=== PATIENT | female | born 1945 | race Caucasian/White ===

== ENCOUNTER 2024-09-24 08:22 | Inpatient (IN) | payer OTHER, SELFPAY ==
[2024-09-24] VITALS (9 sets, daily range): BP systolic 126–164; BP diastolic 74–91; PULSE 79–98; RESP 16–20; TEMP 36.3–36.8; O2SAT 95–99; BMI 27.4
--- NOTE | 2024-09-24 08:58 | EKG_ITS ---
[facility] Test Date: 2024-09-24 Pat Name: JAIRON POWELL Department: Room: - Gender: Female Fisher Scallop: : 1945 Requested By: Emilie Alcala Order Number: [id number] Reading MD: Emilie Alcala Measurements Intervals [place] Rate: 89 P: ME: QRS: 34 QRSD: 86 T: 42 QT: 364 QTc: 445 Interpretive Statements ATRIAL FIBRILLATION NONSPECIFIC T-WAVE ABNORMALITY ABNORMAL RHYTHM ECG No previous ECG available for comparison /store/S0/[id number]
--- NOTE | 2024-09-24 08:59 | XR_ITS ---
Examination: PA lateral chest 2 views Technique: Upright PA lateral chest 2 views Exam date and time: September 24, 2024, 0922 hrs. Indications: Dizziness beginning 2 days ago. Findings: Mild prominence cardiac contour. Ectatic thoracic aorta. CABG. No pneumonia or pulmonary edema. Impression: No pneumonia or pulmonary edema.
--- NOTE | 2024-09-24 09:15 | PD.EDRME ---
Rapid Medical Screening Exam RME Arrival date/time: 09/24/24 08:22 This is a 78-year-old female that comes in with complaints of dizziness. Patient states that the dizziness started when she woke up this morning. Patient reports that the dizziness is random it is not so much when she moves her head [id number] it just comes and goes. Patient has a history of open heart surgery. Patient also reports history of high blood pressure. Patient denies any chest pain shortness of breath. I have greeted and performed a focused initial assessment of this patient. Initial appropriate labs ordered at this time. A comprehensive ED assessment and evaluation of the patient and analysis of all test and completion of medical decision making process will be conducted by additional ED provider. Chief Complaint: Dizziness Time Seen by Provider: 09/24/24 08:28 Vital signs: Vital Signs Temperature 98.2 F 09/24/24 08:29 Pulse Rate 87 09/24/24 08:29 Respiratory Rate 18 09/24/24 08:29 Blood Pressure 164/91 H 09/24/24 08:29 Pulse Oximetry (%) 97 09/24/24 08:29 Oxygen Delivery Method Room Air 09/24/24 08:29
[2024-09-24 10:05] LABS: Collection Type, Urine Voided; Squamous Epithelial Cell,Urine 0 /hpf (0-5)
[2024-09-24 10:14] LABS: Basophils % (Auto) 1 % (0-2.5); Eosinophils # (Auto) 0.1 Thou/mm3 (0.0-0.5); Eosinophils % (Auto) 2 % (0-10); Hematocrit 31.2 % (36.0-46.0); Hemoglobin 9.5 g/dL (12.0-16.0); Immature Granulocytes % (Auto) 0 % (0-0); Immature Granulocytes Auto 0.01 Thou/mm3 (0.00-0.00); Lymphocytes # (Auto) 1.2 Thou/mm3 (1.0-4.8); Lymphocytes % (Auto) 27 % (10-50); Mean Corpuscular HGB Conc 30.4 g/dl (31.0-37.0); Mean Corpuscular Hemoglobin 25.3 pg (25.0-35.0); Mean Corpuscular Volume 83 fL (80-100); Monocytes # (Auto) 0.4 Thou/mm3 (0.0-0.8); Monocytes % (Auto) 9 % (0-12); Neutrophils # (Auto) 2.7 Thou/mm3 (1.8-7.7); Neutrophils % (Auto) 61 % (37-80); Nucleated Red Blood Cell % 0 /100 WBC (0); Platelet Count 256 Thou/mm3 (140-440); RDW Standard Deviation 44.4 fL (36.4-46.3); Red Blood Count 3.76 Miln/mm3 (4.00-5.20); White Blood Count 4.4 Thou/mm3 (3.6-11.0)
[2024-09-24 10:42] LABS: B-Type Natriuretic Peptide 238 pg/mL (0-100)
[2024-09-24 10:45] LABS: Alanine Aminotransferase 31 U/L (10-49); Albumin, Serum 4.5 gm/dL (3.4-4.8); Alkaline Phosphatase 67 U/L (46-116); Anion Gap 8 (7-16); Aspartate Amino Transferase 25 U/L (0-34); BUN/Creatinine Ratio 13 Ratio (12-20); Bilirubin,Total 0.5 mg/dL (0.3-1.2); Blood Urea Nitrogen 17 mg/dL (9-23); Calcium 9.2 mg/dL (8.3-10.6); Calcium (Corrected) 9.2 mg/dL (8.5-10.1); Carbon Dioxide 24.9 mMol/L (20.0-31.0); Chloride 111 mMol/L (98-107); Creatinine (Component) 1.3 mg/dL (0.6-1.3); Globulin 2.2 gm/dL (2.3-3.5); Glucose 131 mg/dL (74-106); Osmolality,Calculated 290 (275-295); Potassium 4.4 mMol/L (3.4-5.1); Sodium 144 mMol/L (136-145); Total Protein 6.7 gm/dL (5.7-8.2); Troponin I < 0.020 ng/mL (0.0-0.045); eGFR 42 See Note
[2024-09-24 10:45] LABS: Bilirubin,Urine Negative (Negative); Blood,Urine Negative (Negative); Clarity,Urine Clear (Clear/Hazy); Color,Urine Colorless (Lt Yel-Yel); Culture Indicated,Urine Not Indicated; Glucose, Urine Negative (Negative); Ketones,Urine Negative (Negative); Leukocyte Esterase,Urine Negative (Negative); Nitrite,Urine Negative (Negative); PH,Urine 6.5 (5.0-7.0); Protein,Urine Negative (Neg - Trace); RBC,Urine 1 /hpf (0-3); Specific Gravity,Urine 1.013 (1.001-1.035); Urobilinogen,Urine Negative mg/dL (0.0-1.0); WBC,Urine < 1 /hpf (0-5)
--- NOTE | 2024-09-24 13:03 | PC.NURSE ---
Patient from [facility] and taken to er room 4 with c/o dizziness early this am upon getting up. Unknown exact time. Got patient up to walk around nurses station, patient states she feels off balance, however, denies feeling dizzy right now, Jugen [employer] at bedside and is aware. Patient denies pain, skin is warm dry and pink, new orders received from [employer]. Daughter at bedside, call light within reach.
--- NOTE | 2024-09-24 13:05 | XR_ITS ---
Examination: CT brain head without contrast. 2-D sagittal coronal reconstructions Date and time of exam:September 24, 2024 1325 hrs. Indications: Dizziness difficulty with balance today CTDI: vol (mGy):46.3 DLP: (mGycm):944 Technique: Multiple CT axial sections of the brain have been obtained, 5 mm slice thickness. Contrast has not been administered. 2-D sagittal, coronal reconstructions have been obtained Low dose protocols were performed. One or more of the following dose reduction techniques were used; automated exposure control, adjustment of the mA and/or KV according to patient size, use of iterative reconstruction technique. Findings: No significant ventricular enlargement. Intra-axial or extra-axial hemorrhage density is not seen. No mass effect or midline shift Basal cisterns are not remarkable. Fourth ventricle is midline. Cranial vault intact. Impression: Negative for acute hemorrhage, mass effect or midline shift Advise clinical correlation and follow-up accordingly
--- NOTE | 2024-09-24 13:08 | EDNOTE_ITS ---
ED General RME/HPI General Chief complaint: Dizziness Stated complaint: DIZZINESS Time Seen by Provider: 09/24/24 08:28 Arrival date/time: 09/24/24 08:22 CC: Dizziness HPI abrupt onset of dizziness with waking up this morning at approximately 6:15 AM. The patient states she almost fell over while trying to go to the bathroom. Patient states she woke up while lying in bed and immediately got up to get her dog off the bed. Patient does not think that she was dizzy at the time she was laying in bed but the dizziness has waxed and waned. Currently the patient states she is not dizzy but is unsteady on her feet . Patient denies the room spinning but states that she is spinning . Patient denies a prior history of similar events. Patient has a history of hypertension taking lisinopril and amlodipine. Patient denies chest pain shortness of breath difficulty breathing headache nausea vomiting diarrhea. Patient is very active, living in [place], manages multiple horses and dogs. No prior history of this symptoms before. During the initial assessment patient was ambulated. Patient noted to have a mildly unsteady gait secondary to balance quickly correcting her balance with a sidestep without a fall. RME / HPI RME / HPI narrative: 09/24/24 08:22 This is a 78-year-old female that comes in with complaints of dizziness. Patient states that the dizziness started when she woke up this morning. Patient reports that the dizziness is random it is not so much when she moves her head [id number] it just comes and goes. Patient has a history of open heart surgery. Patient also reports history of high blood pressure. Patient denies any chest pain shortness of breath. I have greeted and performed a focused initial assessment of this patient. Initial appropriate labs ordered at this time. A comprehensive ED assessment and evaluation of the patient and analysis of all test and completion of medical decision making process will be conducted by additional ED provider. Related Data Allergies Allergy/AdvReac Type Severity Reaction Status Date / Time codeine Allergy Mild Dizziness Verified 09/24/24 08:26 Review of Systems Review of Systems Narrative Review of Systems: GEN: No fever, no chills, no weight loss EYES: No discharge, no visual changes, no pain HEENT: No ear pain, no congestion, no sore throat PULM: No shortness of breath, no cough, no congestion CV: No chest pain, no dyspnea on exertion, no palpitations GI: No nausea, no vomiting, no diarrhea, no pain, no constipation : No frequency, no urgency, no dysuria MUSC/SKEL: No joint pain, no back pain SKIN: No rash PSYCH: No hallucinations, no depression HEME/LYMPH: No easy bleeding or bruising tendencies NEURO: No weakness, no headache, + dizziness Past Medical History Past Medical History CARDIAC: Positive Hypertension; Negative Congestive Heart Failure RESPIRATORY: Negative Chronic Obstructive Pulmonary Disease (COPD) GENITOURINARY: Negative Renal Disease ENDOCRINE: Negative Diabetes Mellitus Type 1 or Diabetes Mellitus Type 2 Surgical History SURGICAL: Positive Coronary Artery Bypass Graft (triple bypass) and Tonsillectomy Social History SMOKING STATUS: Never smoker ED Exam Narrative Physical exam: [General: Appears not in any acute distress Head normocephalic HEENT: Eyes pupils are PERRLA EOMs intact no vertical horizontal nystagmus. Mouth: Sarita moist membranes uvula is midline swallow symmetrical. All the subsystems of HEENT are within acceptable limits Neck is supple nontender no JVD no edema Chest equal chest rise nontender to palpation Respiratory: Clear to auscultation no wheezes crackles or rubs CV: Rate rhythm is regular no murmurs rubs or clicks Abdomen is soft nontender no masses positive bowel sounds all 4 quadrants Back: No CVA tenderness no spinous process tenderness from cervical spine thoracic and lumbar spine Skin: Intact no petechiae rash induration ulceration or crepitus Extremities: Moving all extremity against resistance cap refill less than 2 seconds neurosensory intact Neuro: Awake alert oriented x3 Glascow coma 15 no focal deficits] cranial nerves II through XII are grossly intact. Course Course Course Narrative: At 1330 contacted telemetry neurology as we do not have local neurology coverage. At 1400 discussed the patient's condition with , teleneurologist, who agrees patient needs a stroke workup especially finding that the patient is A- fib new onset. Patient is in agreement with this plan. Patient's case discussed with resident for Dr. Horowitz who agrees to accept the patient for admission Quality Measures none Orders Category Date Time Status CT Screening NOW Care 09/24/24 13:10 Active EKG (ED ONLY) *Do not use* NOW Care 09/24/24 08:58 Completed EKG (ED ONLY) *Do not use* NOW Care 09/24/24 13:[address] angio carotid w head w Stat Exams 09/24/24 13:[address] head/brain wo con Stat Exams 09/24/24 13:05 Completed EKG (ED Only) Stat Exams 09/24/24 08:58 Draft EKG (ED Only) Stat Exams 09/24/24 13:22 Ordered XR chest 2V Stat Exams 09/24/24 08:59 Completed BNP [B-Type Natriuretic Peptide] Stat Lab 09/24/24 09:44 Completed CBC Stat Lab 09/24/24 09:44 Completed Comprehensive Metabolic Panel Stat Lab 09/24/24 09:44 Completed Troponin I Stat Lab 09/24/24 09:44 Completed Urinalysis, C/S if Indicated Stat Lab 09/24/24 09:00 Completed Aspirin [Ecotrin] Med 09/24/24 14:15 Discontinued 81 mg PO X1 ONE Clopidogrel [Plavix] Med 09/24/24 14:15 Discontinued 75 mg PO X1 ONE Vital Signs Vital signs: Vital Signs Temperature 98.2 F 09/24/24 08:29 Pulse Rate 87 09/24/24 08:29 Respiratory Rate 18 09/24/24 08:29 Blood Pressure 164/91 H 09/24/24 08:29 Pulse Oximetry (%) 97 09/24/24 08:29 Oxygen Delivery Method Room Air 09/24/24 08:29 Discharge Plan Plan Patient Disposition: Other Care w/in Hosp ([facility]) Patient condition on transfer: Stable Prescriptions/Referrals Referrals: No Primary/Family,Physician [Primary Care Provider] - In 1 week Problem List Clinical Impression: CVA (cerebral vascular accident), Vertigo, New onset a-fib Patient/Caregiver Discharge Instructions Print Language: Malian Stand Alone Forms: Brianne Award Info., Patient Portal Info Letter PA/DRIVE IN THEATER ATTENDANT Supervising Physician PA/DRIVE IN THEATER ATTENDANT Supervising Physician: Parag Ahumada ENP [facility] Clinical Information Provided by: patient Medical Records reviewed [facility] Chronic Illness/Social Conditions Explain: Hypertension EKG Interpretation EKG #1: EKG Interpretation: EKG performed at 0859 shows ventricular rate of 89 QRS of 86 QTc of 411. Upon close inspection of this EKG I suspect this is A-fib. No old EKG for comparison. Repeat EKG done at 1347 shows a ventricular rate of 76 QRS of 8 9 QTc of 408 this is A-fib. Labs Lab(s) Interpretation(s): CBC shows no leukocytosis and H&H of 9.5 and 31.2 respectively with platelets of 256 CMP shows a chloride of 111 glucose of 131 no other electrolyte imbalances no renal impairment no transaminitis or T. bili elevation Troponin is negative BNP is 238 Urine is unremarkable for urinary tract infection. Imaging Imaging Interpretation(s): CT head, CTA head and neck are negative as interpreted by me and read by radiology. Medication Administration(s) Medication Administration History Discontinued Medications Aspirin (Aspirin Ec 81 Mg Tabec) 81 mg PO X1 ONE Stop: 09/24/24 14:16 Clopidogrel Bisulfate (Clopidogrel Bisulfate 75 Mg Tablet) 75 mg PO X1 ONE Stop: 09/24/24 14:16 None Diagnosis Differential Diagnosis ED Complaint MDM: CVA TIA A-fib new onset ACS [place]
--- NOTE | 2024-09-24 13:10 | XR_ITS ---
Examination: CTA carotids with intravenous contrast CTA brain, head with intravenous contrast. 2-D sagittal, coronal reconstructions. 3-D reconstructions. Exam date and time: September 24, 2024 1327 hrs. Indications: Dizziness episodes with loss of balance today CTDI: vol (mGy) 24.6 DLP: (mGycm) 429 Technique: Multiple CTA axial brain, head carotid images post intravenous contrast injection 100 cc, [id number]. 2-D sagittal, coronal reconstructions. 3-D reconstructions, 3-D post processing including vascular maximum intensity projection images. Low dose protocols were performed. One or more of the following dose reduction techniques were used; automated exposure control, adjustment of the mA and/or KV according to patient size, use of iterative reconstruction technique. Findings: No significant common carotid carotid bifurcation or internal carotid artery stenoses Mildly dominant right vertebral artery with no critical stenoses No cerebral large vessel arterial occlusions, thrombus or dissection Impression: No significant neck arterial stenoses No cerebral large vessel arterial occlusions Consider elective brain MRI MRA without contrast follow-up
--- NOTE | 2024-09-24 13:13 | PC.NURSE ---
Patient gone to ct via [facility]
--- NOTE | 2024-09-24 13:55 | PC.NURSE ---
Dr. Santos, teleneurologist assessing patient at this time.
[2024-09-24] MEDS: ASPIRIN EC 81 MG TABEC PO (14:27)
[2024-09-24] MEDS: CLOPIDOGREL BISULFATE 75 MG TABLET PO (14:28)
--- NOTE | 2024-09-24 15:08 | XR_ITS ---
Examination: Carotid arterial duplex scan, ultrasound. Date and time of exam: September 24, 2024 1708 hours INDICATIONS: Difficulty with balance today Technique: Multiple sonographic images have been obtained of the carotid arteries and vertebral arteries, B-mode/grayscale imaging and Doppler spectral analysis and color flow Peak systolic and diastolic velocities have been recorded. Systolic diastolic ratios have been calculated. Findings: Right peak systolic velocities: Distal internal carotid artery peak systolic velocity is 0.9 M/sec Proximal internal carotid artery peak systolic velocity is 0.6 M/sec Carotid bifurcation peak systolic velocity is 0.7 M/sec External carotid artery peak systolic velocity is 0.7 M/sec Vertebral artery flow is antegrade. Left peak systolic velocities: Distal internal carotid artery peak systolic velocity is 0.7 M/sec Proximal internal carotid artery peak systolic velocity is 1.1 M/sec Carotid bifurcation peak systolic velocity is 0.8 M/sec External carotid artery peak systolic velocity is 0.8 M/sec Vertebral artery flow is antegrade Doppler waveform analysis demonstrates no spectral broadening Impression: Right internal carotid artery demonstrates 0-10% stenosis. Left internal carotid artery demonstrates 10-30% stenosis.
--- NOTE | 2024-09-24 15:19 | ESHP_ITS ---
Documentation for date of: 09/24/24 HPI History of Present Illness Chief complaint: Dizziness, unsteady gait History of present illness: 78-year-old female with past medical history of hypertension, hyperlipidemia, and CAD status post CABG was admitted to the hospital on 09/24/2024 after coming to the ED where she complains of dizziness with unsteady gait since this morning when she woke up. On assessment patient stated that when she woke up this morning to go to the bathroom she was feeling dizzy and she felt like she was not in control of her body and also that she was having unsteady gait when which she has to take white steps in order to be able to walk and cannot walk on a straight line. She mentioned that this started this morning around 6:15 AM when she went to the bathroom and then went back to bed. She did mention that she felt her face to see if she had any numbness, but she did not appreciate any numbness or facial asymmetry. Patient also stated that she did not have any dysarthria or any weakness. She lives in the [place] where she lives alone and is very active. She mentioned that that this time she did not have any chest pain or felt her heart missing a beat. She did mention that she was a little bit nauseated in the morning, but after she ate it went away. She denied any shortness of breath, abdominal pain, dysuria, bloody stools, or syncopal episode. ED course: Initially came in hypertensive and afebrile. Initial labs were relevant for low hemoglobin (9.5) and mildly elevated BNP at 238, otherwise unremarkable. Initial imaging included EKG which did show a new onset A-fib rate controlled, chest x-ray was showed no pneumonia or pulmonary edema, head CT and head CTA which did not have any significant findings. ED physician spoke with teleneurology who stated to admit the patient for stroke rule out. PMH: Hypertension, hyperlipidemia, and CAD status post CABG Surgical Hx: CABG Social Hx: Past smoker (quit more than 20 years ago), social drinker, and denies any drugs FMH: Mother and sister had strokes and father had an AR Allergies: Codeine Medications: Lisinopril 10 mg, amlodipine 5 mg, ezetimibe Review of Systems Review of Systems Narrative Review of Systems: Constitutional: Denies sweats, Denies weight loss/gain, Denies fever, Denies chills. HEENT: Denies hearing loss, Denies ear pain, Denies postnasal drip, Denies double vision, Denies blurry vision. Respiratory: Denies shortness of breath, Denies cough, Denies wheezing. Cardiovascular: Denies chest pain, Denies palpitations, Denies sudden loss of consciousness. GI: Denies blood in stool, Denies constipation, Denies abdominal pain, Denies difficulty swallowing, Denies nausea or vomit. : Denies urinary incontinence, Denies pain while urinating, Denies increased urinary frequency. MSK: Denies joint pain, Denies joint swelling, Denies numbness. Skin: Denies rash, Denies itching, Denies easy bruising. Neuro: Denies headaches, Admits dizziness, Denies seizures, admits unsteady gait. Past Medical History Past Medical History CARDIAC: Positive Hypertension; Negative Congestive Heart Failure RESPIRATORY: Negative Chronic Obstructive Pulmonary Disease (COPD) GENITOURINARY: Negative Renal Disease ENDOCRINE: Negative Diabetes Mellitus Type 1 or Diabetes Mellitus Type 2 Surgical History SURGICAL: Positive Coronary Artery Bypass Graft (triple bypass) and Tonsillectomy Social History SMOKING STATUS: Never smoker Exam Vital Signs Temp Pulse Resp BP Pulse Ox O2 Del Method 97.8 F 79 19 135/77 H 98 Room Air 09/24/24 15:11 09/24/24 15:11 09/24/24 15:11 09/24/24 15:11 09/24/24 15:11 09/24/24 15:11 Narrative Exam General: A/O x3, no acute distress, well-nourished, well-developed Eyes: PERRL, EOMI. Anicteric, vision grossly intact. Ears: No ear pain, no ear discharge, Hearing grossly intact. Nose: No nasal discharge. Mouth/Throat: Moist mucous membranes, no redness, no lesions. Neck: Neck supple, non-tender, no cervical lymphadenopathy. Lungs: Clear LALO to auscultation and percussion, No accessory muscle use. Cardio: Normal S1/S2, irregular rhythm, no murmurs, no JVD Abdomen: Soft, non-tender, no palpable masses, peristalsis present, no guarding or rebound. Extremities: Symmetrical, no significant deformities, no peripheral edema , non-tender, peripheral pulses presents. Skin: No rashes, no lesions, warm to touch. Neuro: No focal neurological deficits. Motor strength 5/5 LALO UE and LE. Sensory intact. No facial asymmetry. No dysmetria. Psych: Cooperative, appropriate mood and effect. Results: Labs 09/25/24 05:53 09/25/24 05:53 Labs: Short CBC 09/24/24 Range/Units 09:44 WBC 4.4 (3.6-11.0) Thou/mm3 Hgb 9.5 L (12.0-16.0) g/dL Hct 31.2 L (36.0-46.0) % Plt Count 256 (140-440) Thou/mm3 BMP 09/24/24 09:44 Sodium 144 Potassium 4.4 Chloride 111 H Carbon Dioxide 24.9 BUN 17 Creatinine 1.3 Glucose 131 H Calcium 9.2 Cardiac Enzymes 09/24/24 Range/Units 09:44 Troponin I < 0.020 (0.0-0.045) ng/mL Liver Function 09/24/24 Range/Units 09:44 Total Bilirubin 0.5 (0.3-1.2) mg/dL AST 25 (0-34) U/L ALT 31 (10-49) U/L Alkaline Phosphatase 67 (46-116) U/L Albumin 4.5 (3.4-4.8) gm/dL Urine 09/24/24 Range/Units 09:00 Urine Color Colorless A (Lt Yel-Yel) Urine Clarity Clear (Clear/Hazy) Urine pH 6.5 (5.0-7.0) Ur Specific [place] 1.013 (1.001-1.035) Urine Protein Negative (Neg - Trace) Urine Glucose (UA) Negative (Negative) Quality Measures Quality Measures none Advance care planning discussed with:: patient and child Medications Home Medications and Allergies Allergies Allergy/AdvReac Type Severity Reaction Status Date / Time codeine Allergy Mild Dizziness Verified 09/24/24 08:26 Visit Medications Acetaminophen (Acetaminophen 325 Mg Tablet) 650 mg PO Q6H PRN PRN Reason: pain and Fever >100.4 Stop: 10/24/24 15:04 Aspirin (Aspirin Ec 81 Mg Tabec) 81 mg PO QDAY SERAFIN Stop: 10/25/24 08:59 Atorvastatin Calcium (Atorvastatin Calcium 20 Mg Tablet) 40 mg PO HS SERAFIN Stop: 10/24/24 20:59 Heparin Sodium (Porcine) (Heparin Sod Inj 5000 Unit/Ml Vial) 5,000 unit SC Q8HR [facility] Stop: 10/08/24 21:59 Ondansetron HCl (Ondansetron Inj 2 Mg/Ml Inj 2 Ml) 4 mg IV Q6H PRN; Protocol PRN Reason: NAUSEA OR VOMITING Stop: 10/24/24 15:04 Pantoprazole Sodium (Pantoprazole 40 Mg Tablet) 40 mg PO QDAY [facility] Stop: 10/25/24 08:59 Discontinued Medications Aspirin (Aspirin Ec 81 Mg Tabec) 81 mg PO X1 ONE Stop: 09/24/24 14:16 Last Admin: 09/24/24 14:27 Dose: 81 mg Clopidogrel Bisulfate (Clopidogrel Bisulfate 75 Mg Tablet) 75 mg PO X1 ONE Stop: 09/24/24 14:16 Last Admin: 09/24/24 14:28 Dose: 75 mg Assessment & Plan Plan 78-year-old female with past medical history of hypertension, hyperlipidemia, and CAD status post CABG was admitted to hospital 09/24/2024 for stroke rule out in the setting of dizziness and unsteady gait. #Stroke R/O #Dizziness #Unsteady gait ?DDx TIA versus stroke ?Patient had new onset A-fib which could have contributed for possible stroke ?NIHSS score 0 ?CTA head and neck negative ?CT head negative Plan: ?Patient was out of window for IV thrombolytics. ?Aspirin and statin ordered ? MRI ordered ?Echo with bubble studies ordered ?Carotid ultrasound ordered ?Neurochecks every 4 hours ?Allow permissive hypertension ?Aspiration precautions -Consult in-hospital neurology, appreciate recommendations -Referred to speech and physical therapy #Atrial fibrillation, new onset Patient denies having any feelings of skipped heartbeat or tachycardia. EKG showed new onset A-fib with rate in the 70s. [id number] 5 points indicating 7.2% stroke risk per year HAS-BLED score of 1 point indicating low risk of major bleeding Plan: Patient appears to be rate controlled at this time therefore no rate or rhythm control medication Will start patient on Eliquis 5mg twice daily once cardiology approves Cardiology consulted, appreciate recommendations #Hx of hypertension Patient's blood pressure was mildly elevated during admission and 164/91, but then was in the 130s over 70s. Will allow for permissive hypertension for now #Hx of hyperlipidemia Patient takes ezetimibe Will start patient on atorvastatin 40 mg at bedtime Disposition: Patient admitted to telemetry for stroke r/o, pending MRI, US carotid, and Neuro and cardio recs. Diet: Cardiac GI prophylaxis: protonix DVT prophylaxis: heparin subcu Code:DNR Case disclosed with Attending Dr. Lor Dukes PGY1 Attending Provider Attestation/Addendum I reviewed labs, imaging, EKG, home medications and prior available records. Face to face evaluation was performed by me. I have personally examined the patient and discussed assessment and plan with the IM team. I reviewed the resident note and agree with the plan with exceptions as below. Vertigo Ataxia CVA symptoms New onset atrial fibrillation Essential hypertension Hyperlipidemia CT scan of the head is negative for acute changes Started aspirin and atorvastatin Follow-up brain MRI Follow-up echocardiogram with bubble study Follow-up carotid ultrasound Consulted cardiology Consulted neurology PT/OT evaluation
--- NOTE | 2024-09-24 15:39 | ESCONSULT_ITS ---
Tele Neuro Consultation Consultation Date 09/24/24 Most Recent Vital Signs Last Vital Signs Temp 97.8 F 09/24/24 15:11 Pulse 79 09/24/24 15:11 Resp 19 09/24/24 15:11 BP 135/77 H 09/24/24 15:11 Pulse Ox 98 09/24/24 15:11 O2 Del Method Room Air 09/24/24 15:11 Consultation Narrative [facility] TeleNeurology Consult Services Stat Consult Patient Name:???JAIRON POWELL Date of :???1945 Identification Number:??? Date of Service:???09/24/2024 13:18:24 Diagnosis:?R42 - Dizziness/ Vertigo/ Giddiness Impression 78 year old female who presents to the hospital because of unsteady gait. Presentation concerning for possible posterior circulation stroke. Recommendations: Our recommendations are outlined below. Diagnostic Studies :MRI head without contrast TTE w/ shunt study Laboratory Studies :Lipid panel * I orderedHemoglobin A1c Antithrombotic Medication :Aspirin 81 mg PO daily Clopidogrel 75 mg daily Nursing Recommendations :IV Fluids, avoid dextrose containing fluids, Maintain euglycemia Neuro checks q4 hrs x 24 hrs and then per shift Head of bed 30 degrees Continue with Telemetry Consultations :Recommend Speech therapy if failed dysphagia screen Physical therapy/Occupational therapy DVT Prophylaxis :Choice of Primary Team Disposition :Neurology will follow Advanced Imaging: CTA Head and Neck Completed. LVO:No Patient in not a candidate for GIORGIO Metrics: Dispatch Time: 09/24/2024 13:18:24 Callback Response Time: 09/24/2024 13:20:59 Primary Provider Notified of Diagnostic Impression and Management Plan on: 09/24/2024 14:13:53 CT HEAD: As Per Radiologist CT Head Showed No Acute Hemorrhage or Acute Core Infarct Chief Complaint: Vertigo History of Present Illness:Patient is a 78 year old Female. 78 year old female who presents to the hospital because of dizziness and feeling off balance. She was normal when she went to bed and throughout the night she woke up to use the bathroom and felt normal. At 6am she woke up and tried to get up from bed and felt the room spinning and was unsteady on her feet. Past Medical History: ?Hypertension ?Hyperlipidemia Medications: No Anticoagulant use? No Antiplatelet use Reviewed EMR for current medications Allergies:? Reviewed Social History: Drug Use: No Family History: There is no family history of premature cerebrovascular disease pertinent to this consultation ROS : 14 Points Review of Systems was performed and was negative except mentioned in HPI. Past Surgical History: There Is No Surgical History Contributory To Today?s Visit Examination: BP(135/77),?Pulse(79), 1A: Level of Consciousness - Alert; keenly responsive?+ 0 1B: Ask Month and Age - Both Questions Right?+ 0 1C: Blink Eyes & Squeeze Hands - Performs Both Tasks?+ 0 2: Test Horizontal Extraocular Movements - Normal?+ 0 3: Test Visual Rincon - No Visual Loss?+ 0 4: Test Facial Palsy (Use Grimace if Obtunded) - Normal symmetry?+ 0 5A: Test Left Arm Motor Drift - No Drift for 10 Seconds?+ 0 5B: Test Right Arm Motor Drift - No Drift for 10 Seconds?+ 0 6A: Test Left Leg Motor Drift - No Drift for 5 Seconds?+ 0 6B: Test Right Leg Motor Drift - No Drift for 5 Seconds?+ 0 7: Test Limb Ataxia (FNF/Heel-Palacios) - No Ataxia?+ 0 8: Test Sensation - Normal; No sensory loss?+ 0 9: Test Language/Aphasia - Normal; No aphasia?+ 0 10: Test Dysarthria - Normal?+ 0 11: Test Extinction/Inattention - No abnormality?+ 0 NIHSS Score:?0 Spoke with :?Dr. Ahumada This consult was conducted in real time using interactive audio and video technology. Patient was informed of the technology being used for this visit and agreed to proceed. Patient located in hospital and provider located at home/office setting. Patient is being evaluated for possible acute neurologic impairment and high probability of imminent or life - threatening deterioration.I spent total of 35 minutes providing care to this patient, including time for face to face visit via telemedicine, review of medical records, imaging studies and discussion of findings with providers, the patient and / or family. Dr Zita Santos [facility] For Inpatient follow-up with [facility] physician please call [facility] at . As we are not an outpatient service for any post hospital discharge needs please contact the hospital for assistance. If you have any questions for the [facility] physicians or need to reconsult for clinical or diagnostic changes please contact us via [facility] at .
--- NOTE | 2024-09-24 15:59 | PC.NURSE ---
Dr. Conde at bedside to evaluate patient
--- NOTE | 2024-09-24 17:08 | ESCONSULT_ITS ---
<Statement entered by Asa Corral MD - 09/24/24 17:58> I personally examined this patient in the emergency room patient's noted to have coronary disease status post CABG about 5 years ago in [facility] not sure whether appendage of the left atrium was removed at that time came to the hospital with incoordination neurologic symptoms possibly cerebellar symptoms clearly has A-fib new onset could be chronic since the patient's rate is controlled well as she is not symptomatic from A-fib itself she has not seen a chocolate refining roller since bypass surgery only seen a family doctor in the remote town near [facility] is visiting [place] came to the hospital his neurologic symptoms currently appears to be stable no focal deficits were detected CT was negative. Neurology teleneurologist did recommend aspirin Plavix but patient clearly has [id number] score of 5 recommended to be treated with Eliquis instead of dual antiplatelet therapy Eliquis and aspirin appears be more appropriate than aspirin Plavix as for anticoagulation regimen is concerned. No evidence of any acute coronary syndrome no shortness with chest pain reported. Agree with treatment plan recommendation would recommend anticoagulation regimen to be baby aspirin and Eliquis 5 mg twice daily and cardiac echo will be reviewed upon completion and a carotid duplex scan should also be ordered. Agree with the treatment plan recommendation as recommended by PGY 2 Dr. Burger [facility] Data of Consult Requesting Physician: Caleb Horowitz MD Admitting Provider: Caleb Horowitz MD Attending Provider: Caleb Horowitz MD Primary Care Provider: Physician No Primary/Family Consult Narrative Reason for consult: New onset A-fib History of present illness: Patient is a 78 years old female with past medical history of hypertension, hyperlipidemia, and CAD status post CABG in 2019 presented to the ED due to unsteady gait since this morning when she woke up. Stroke alert was called and teleneuro was consulted, she was admitted for further evaluation and MRI. CT head and CTA were negative. EKG showed Afib, cardiology was consulted due to new onset Afib. Patient was seen and examined at the bedside in the emergency room. She reports no complaints and states her symptoms has resolved. She denies any chest pain, palpitations, shortness of breath. She has never been diagnosed with atrial fibrillation before. She reports that she underwent CABG in 2019 [facility] in [place] after abnormal stress test and 3 bypasses were placed. At home she is taking lisinopril, amlodipine and Zetia. Her A-fib is rate controlled at 89. Recommended to begin on Eliquis 5 mg twice daily. No need for rate control medications at this time. Continue telemetry monitoring. Labs showed troponin negative, BNP 238. Echo is ordered for tomorrow. cc:: cc: Caleb Horowitz MD Review of Systems Review of Systems Systems Reviewed: All systems reviewed, normal except as documented Exam Vital Signs Temp Pulse Resp BP Pulse Ox O2 Del Method 97.8 F 85 19 135/77 H 98 Room Air 09/24/24 15:11 09/24/24 15:55 09/24/24 15:11 09/24/24 15:11 09/24/24 15:11 09/24/24 15:11 Narrative Exam Gen: Well-developed and well-nourished female. HEENT: NCAT, PERRLA, EOMI, MMM, anicteric conjunctivae. CVS: normal S1 and S2. Irregularly irregular. No M/R/G. Resp: CTA B/L. No rhonchi, rales, crackles or wheezing. Abd: soft, non-tender, non-distended. BS+ in all 4 quadrants. MSK: Good ROM in BUE & BLE. Trace edema BLE. Midline chest scar from CABG, well-healed. Neuro: CN II-XII grossly intact. Strength 5/5 in BUE & BLE. Alert and oriented x3. Psych: appropriate mood and affect. Results Labs 09/24/24 09:44 09/24/24 09:44 Labs: Short CBC 09/24/24 Range/Units 09:44 WBC 4.4 (3.6-11.0) Thou/mm3 Hgb 9.5 L (12.0-16.0) g/dL Hct 31.2 L (36.0-46.0) % Plt Count 256 (140-440) Thou/mm3 BMP 09/24/24 09:44 Sodium 144 Potassium 4.4 Chloride 111 H Carbon Dioxide 24.9 BUN 17 Creatinine 1.3 Glucose 131 H Calcium 9.2 Cardiac Enzymes 09/24/24 Range/Units 09:44 Troponin I < 0.020 (0.0-0.045) ng/mL Liver Function 05/04/25 Range/Units 09:44 Total Bilirubin 0.5 (0.3-1.2) mg/dL AST 25 (0-34) U/L ALT 31 (10-49) U/L Alkaline Phosphatase 67 (46-116) U/L Albumin 4.5 (3.4-4.8) gm/dL Urine 09/24/24 Range/Units 09:00 Urine Color Colorless A (Lt Yel-Yel) Urine Clarity Clear (Clear/Hazy) Urine pH 6.5 (5.0-7.0) Ur Specific [place] 1.013 (1.001-1.035) Urine Protein Negative (Neg - Trace) Urine Glucose (UA) Negative (Negative) Quality Measures Quality Measures VTE prophylaxis Advance care planning discussed with:: patient Medications Home Medications and Allergies Allergies Allergy/AdvReac Type Severity Reaction Status Date / Time codeine Allergy Mild Dizziness Verified 09/24/24 08:26 Visit Medications Acetaminophen (Acetaminophen 325 Mg Tablet) 650 mg PO Q6H PRN PRN Reason: pain and Fever >100.4 Stop: 10/24/24 15:04 Apixaban (Apixaban 2.5 Mg Tablet) 5 mg PO BID ON LICENSE OF [facility] Stop: 10/24/24 20:59 Aspirin (Aspirin Ec 81 Mg Tabec) 81 mg PO QDAY SERAFIN Stop: 10/25/24 08:59 Atorvastatin Calcium (Atorvastatin Calcium 20 Mg Tablet) 40 mg PO HS ON LICENSE OF [facility] Stop: 10/24/24 20:59 Ondansetron HCl (Ondansetron Inj 2 Mg/Ml Inj 2 Ml) 4 mg IV Q6H PRN; Protocol PRN Reason: NAUSEA OR VOMITING Stop: 10/24/24 15:04 Pantoprazole Sodium (Pantoprazole 40 Mg Tablet) 40 mg PO QDAY ON LICENSE OF [facility] Stop: 10/25/24 08:59 Discontinued Medications Aspirin (Aspirin Ec 81 Mg Tabec) 81 mg PO X1 ONE Stop: 09/24/24 14:16 Last Admin: 09/24/24 14:27 Dose: 81 mg Clopidogrel Bisulfate (Clopidogrel Bisulfate 75 Mg Tablet) 75 mg PO X1 ONE Stop: 09/24/24 14:16 Last Admin: 09/24/24 14:28 Dose: 75 mg Heparin Sodium (Porcine) (Heparin Sod Inj 5000 Unit/Ml Vial) 5,000 unit SC Q8HR SERAFIN Stop: 10/08/24 21:59 Assessment & Plan Plan Patient is a 78 years old female with past medical history of hypertension, hyperlipidemia, and CAD status post CABG in 2020 presented to the ED due to unsteady gait since this morning when she woke up. Stroke alert was called and teleneuro was consulted, she was admitted for further evaluation and MRI. CT head and CTA were negative. EKG showed Afib, cardiology was consulted due to new onset Afib. #New onset atrial fibrillation, rate controlled. Incidental finding during stroke workup, heart rate at 89. Never been diagnosed with atrial fibrillation before. History of CAD and CABG in 2020. [id number] score 5 points. Plan: - Recommended to start on Eliquis 5 mg twice daily. - Echo is ordered for tomorrow. - No rate control medications as of now. - Continue telemetry monitoring. #CAD s/p CABG in 2020. Underwent CABG in 2019 [facility] in [place] after abnormal stress test and 3 bypasses were placed. She does not take aspirin or statin at home. She is not followed by chocolate refining roller. Troponin negative. EKG did not show ST segment changes. Recommended to monitor patient as of now. Echo is pending. #Hypertension. - Resume home amlodipine and lisinopril when possible, follow recommendations regarding permissive hypertension. #Hyperlipidemia. - Repeat lipid panel. - Resume home Zetia. #Stroke rule out. - Management as per primary team and neurology recommendations. Plan of care discussed with attending Dr. Corral. Tao De La Garza MD, PGY 2. Disclaimer: This note was dictated by speech recognition. Minor errors in chairman & ceo may be present due to voice recognition software.
[2024-09-24] MEDS: APIXABAN 2.5 MG TABLET 5 MG PO (20:49)
--- NOTE | 2024-09-24 20:52 | PC.NURSE ---
pt refused lipitor stated that she takes cholesterol medication at home but does not take a statin and did not want to start today. She will get the name of cholesterol medication and let us know what she does take
--- NOTE | 2024-09-24 22:34 | PD.NEUROCONS ---
History of Present Illness Data of Consult Requesting Physician: Caleb Horowitz MD Primary Care Provider: Physician No Primary/Family Consult Narrative History of present illness: Patient is a 78-year-old female with hypertension, hyperlipidemia coronary artery disease status post CABG got admitted to the hospital after she presented with sudden onset of dizziness and unsteady gait since she woke up this morning. She felt dizzy and lost control of her body with unsteady gait when she tried to walk and could not walk in straight line. She did not report any numbness, weakness or trouble with articulation of words. She never had similar symptoms in the past. She denies any chest pain shortness of breath, abdominal pain, fever chills or nausea vomiting. Workup in the ER: Vital signs: Afebrile blood pressure: Was elevated. labs: Hemoglobin: 9.5 and mildly elevated BNP at 238, otherwise unremarkable. Imaging: EKG showed a new onset A-fib rate controlled, chest x-ray was showed no pneumonia or pulmonary edema, head CT and head CTA which did not have any significant findings. Teleneurology was consulted, patient got admitted to telemetry for further workup of TIA/CVA. Now her symptoms have completely resolved and is back to baseline. Denies any recurrence after admission. In-house neurology was consulted to evaluate further. cc:: cc: Caleb Horowitz MD Review of Systems Review of Systems Systems Reviewed: All systems reviewed, normal except as documented Past Medical History Past Medical History CARDIAC: Positive Hypertension; Negative Congestive Heart Failure RESPIRATORY: Negative Chronic Obstructive Pulmonary Disease (COPD) GENITOURINARY: Negative Renal Disease ENDOCRINE: Negative Diabetes Mellitus Type 1 or Diabetes Mellitus Type 2 Surgical History SURGICAL: Positive Coronary Artery Bypass Graft (triple bypass) and Tonsillectomy Social History SMOKING STATUS: Never smoker Meds Home Medications and Allergies Allergies Allergy/AdvReac Type Severity Reaction Status Date / Time codeine Allergy Mild Dizziness Verified 09/24/24 08:26 Exam - Neurology Vital Signs Temp Pulse Resp BP Pulse Ox O2 Del Method 97.4 F 80 16 126/74 95 Room Air 09/24/24 19:57 09/24/24 19:57 09/24/24 19:57 09/24/24 19:57 09/24/24 19:57 09/24/24 19:57 Narrative Exam GENERAL APPEARANCE: Well hydrated, well-nourished in no acute distress. HEENT: Normocephalic, atraumatic, extraocular movements intact. Pupils: Equal reacting to light and accommodation NECK: Supple, no JVD or bruits. CARDIOVASULAR: Heart: S1, S2 heard, regular without S3-S4 or murmur no rubs or gallops. LUNGS/CHEST: Clear to auscultation bilaterally. No rails, rhonchi, or wheezing. Normal inspection. ABDOMEN: Soft, nontender, with normal bowel sounds. No pulsatile masses. No rebound, rigidity, or guarding. Normal inspection and palpation. EXTREMITIES: Normal inspection and palpation. No edema, clubbing or cyanosis. SKIN: Warm and dry without rashes. Normal inspection. MUSCULOSKELETAL: No cervical, thoracic, lumbar or midline bony tenderness. Normal inspection. NEURO: Alert, awake and oriented x3. Cranial nerves: II through XII grossly intact. Speech and language: Normal with no dysarthria or dysphasia. Motor system: Tone and bulk: Normal: Strength: 5 out of 5 in all 4 extremities; No pronator drift noted. Deep tendon reflexes: 2+ bilaterally symmetrical. Plantar reflex: Downgoing bilaterally. Sensory system: Intact to all modalities of sensation bilaterally. Coordination: Intact to [id number]-[id number]-[id number] and fxoo-gewh-tazj test bilaterally. No ataxia, no dysmetria, or dysdiadochokinesia noted. No intention tremors noted. Gait: Normal. Toe, heel, tandem walk all are normal. Romberg: Negative. No signs of meningeal irritation noted. PSYCHIATRIC: Normal mood and affect. Results Labs 09/24/24 09:44 09/24/24 09:44 Labs: Short CBC 09/24/24 Range/Units 09:44 WBC 4.4 (3.6-11.0) Thou/mm3 Hgb 9.5 L (12.0-16.0) g/dL Hct 31.2 L (36.0-46.0) % Plt Count 256 (140-440) Thou/mm3 BMP 09/24/24 09:44 Sodium 144 Potassium 4.4 Chloride 111 H Carbon Dioxide 24.9 BUN 17 Creatinine 1.3 Glucose 131 H Calcium 9.2 Cardiac Enzymes 09/24/24 Range/Units 09:44 Troponin I < 0.020 (0.0-0.045) ng/mL Liver Function 09/24/24 Range/Units 09:44 Total Bilirubin 0.5 (0.3-1.2) mg/dL AST 25 (0-34) U/L ALT 31 (10-49) U/L Alkaline Phosphatase 67 (46-116) U/L Albumin 4.5 (3.4-4.8) gm/dL Urine 09/24/24 Range/Units 09:00 Urine Color Colorless A (Lt Yel-Yel) Urine Clarity Clear (Clear/Hazy) Urine pH 6.5 (5.0-7.0) Ur Specific [place] 1.013 (1.001-1.035) Urine Protein Negative (Neg - Trace) Urine Glucose (UA) Negative (Negative) Assessment & Plan Assessment and plan (1) CVA (cerebral vascular accident): Status: Acute Assessment and plan: Most likely TIA as her symptoms resolved Follow-up with the brain MRI and rest of the workup. Continue to monitor her closely Continue with aspirin and statin (2) New onset a-fib: Status: Acute Assessment and plan: Continue with Eliquis and rate control
[2024-09-25] VITALS: BP 118/63; PULSE 72; PULSE 97; RESP 23; TEMP 36.5; O2SAT 97
--- NOTE | 2024-09-25 | XR_ITS ---
Examinations: MRI Brain without intravenous contrast. MRA brain without intravenous contrast. MRA carotids without intravenous contrast 3-D vascular reconstructions Date and time of exam: September 25, 2024 1256 hours INDICATIONS: Onset dizziness episodes beginning yesterday Technique: Multiple axial and sagittal images of the brain have been obtained MRA brain carotid images without contrast obtained, including 3-D postprocessing, vascular maximum intensity projection images Findings: Sellaturcica is not enlarged. The optic chiasm and infundibular stalk are not remarkable. Prepontine and interpeduncular cisterns are not enlarged. No localized enlargement of the medulla or eddie. Fourth ventricle and cerebellar tonsils normal in position. Subacute hemorrhage is not seen. Fourth ventricle is midline. Mass in the cerebellopontine angle region is not evident. 7th and 8th nerve complexes exhibits symmetry. Globes are symmetrical with no retro-orbital mass. Increased white matter signal significant Diffusion-weighted images demonstrate no focus of restricted diffusion Mass-effect upon the ventricular system is not identified. MRA carotid images degraded by patient motion. MRA brain images no cerebral large vessel occlusions Impression: Negative for acute hemorrhage mass effect or midline shift No acute infarct Prominent chronic microvascular white matter change No cerebral large vessel arterial occlusions
[2024-09-25 04:00] VITALS: BP 121/73; PULSE 76; PULSE 83; RESP 23; TEMP 36.6; O2SAT 97
[2024-09-25 06:00] VITALS: BMI 27.4
[2024-09-25 06:25] LABS: Basophils % (Auto) 1 % (0-2.5); Eosinophils # (Auto) 0.2 Thou/mm3 (0.0-0.5); Eosinophils % (Auto) 4 % (0-10); Hematocrit 28.3 % (36.0-46.0); Hemoglobin 9.2 g/dL (12.0-16.0); Immature Granulocytes % (Auto) 0 % (0-0); Immature Granulocytes Auto 0.01 Thou/mm3 (0.00-0.00); Lymphocytes # (Auto) 0.8 Thou/mm3 (1.0-4.8); Lymphocytes % (Auto) 24 % (10-50); Mean Corpuscular HGB Conc 32.5 g/dl (31.0-37.0); Mean Corpuscular Hemoglobin 25.8 pg (25.0-35.0); Mean Corpuscular Volume 80 fL (80-100); Monocytes # (Auto) 0.4 Thou/mm3 (0.0-0.8); Monocytes % (Auto) 11 % (0-12); Neutrophils # (Auto) 2.1 Thou/mm3 (1.8-7.7); Neutrophils % (Auto) 60 % (37-80); Nucleated Red Blood Cell % 0 /100 WBC (0); Platelet Count 263 Thou/mm3 (140-440); RDW Standard Deviation 42.6 fL (36.4-46.3); Red Blood Count 3.56 Miln/mm3 (4.00-5.20); White Blood Count 3.6 Thou/mm3 (3.6-11.0)
[2024-09-25 06:53] LABS: Alanine Aminotransferase 24 U/L (10-49); Albumin, Serum 3.9 gm/dL (3.4-4.8); Alkaline Phosphatase 59 U/L (46-116); Anion Gap 8 (7-16); Aspartate Amino Transferase 19 U/L (0-34); BUN/Creatinine Ratio 11 Ratio (12-20); Bilirubin,Total 0.5 mg/dL (0.3-1.2); Blood Urea Nitrogen 13 mg/dL (9-23); Calcium 9.1 mg/dL (8.3-10.6); Calcium (Corrected) 9.2 mg/dL (8.5-10.1); Carbon Dioxide 25.6 mMol/L (20.0-31.0); Chloride 110 mMol/L (98-107); Creatinine (Component) 1.2 mg/dL (0.6-1.3); Estimated Creatinine Clearance 35.7 mL/min (>60); Glucose 99 mg/dL (74-106); Magnesium 1.9 mg/dL (1.6-2.6); Osmolality,Calculated 286 (275-295); Potassium 4.3 mMol/L (3.4-5.1); Sodium 144 mMol/L (136-145); Total Protein 5.9 gm/dL (5.7-8.2); eGFR 46 See Note
[2024-09-25 08:00] VITALS: BP 116/70; PULSE 82; PULSE 86; RESP 12; TEMP 36.5; O2SAT 98
[2024-09-25] MEDS: APIXABAN 2.5 MG TABLET 5 MG PO (09:08)
[2024-09-25] MEDS: ASPIRIN EC 81 MG TABEC PO (09:08)
[2024-09-25] MEDS: PANTOPRAZOLE 40 MG TABLET PO (09:08)
[2024-09-25 09:31] LABS: Ferritin 4 ng/mL (7.3-270.7); Iron 36 mcg/dL (50-170); Percent Iron Saturation 10 % (20-55); Total Iron Binding Capacity 360 mcg/dL (250-425); Unsaturated Iron Binding 324 (225-295)
--- NOTE | 2024-09-25 09:50 | PD.RESPRO ---
Documentation for date of: 09/25/24 Subjective Subjective Interval history: Patient was seen and examined at bedside this morning. No acute overnight events. Patient last night refused the atorvastatin she was not taking at home, but today explained to her that atorvastatin would help stabilize any place that she would have and was also guidelines for patients who had TIA and possible strokes. Side effects were explained and she was okayed to start this medication. Otherwise patient's symptoms have resolved and we are still pending MRI per stroke protocol and echo. Ultrasound carotids did not show any significant stenosis. Patient has normocytic normochromic anemia, but iron panel ordered this morning showed iron deficiency therefore we will start ferrous sulfate every other day. No other complaints at this time other than she is very anxious to be discharged. Exam Vital Signs Temp Pulse Resp BP Pulse Ox O2 Del Method 97.7 F 86 12 116/70 98 Room Air 09/25/24 08:00 09/25/24 08:00 09/25/24 08:00 09/25/24 08:00 09/25/24 08:00 09/25/24 08:00 Narrative Exam General: A/O x3, no acute distress, well-nourished, well-developed Eyes: PERRL, EOMI. Anicteric, vision grossly intact. Ears: No ear pain, no ear discharge, Hearing grossly intact. Nose: No nasal discharge. Mouth/Throat: Moist mucous membranes, no redness, no lesions. Neck: Neck supple, non-tender, no cervical lymphadenopathy. Lungs: Clear LALO to auscultation and percussion, No accessory muscle use. Cardio: Normal S1/S2, irregular rhythm, no murmurs, no JVD Abdomen: Soft, non-tender, no palpable masses, peristalsis present, no guarding or rebound. Extremities: Symmetrical, no significant deformities, no peripheral edema , non-tender, peripheral pulses presents. Skin: No rashes, no lesions, warm to touch. Neuro: No focal neurological deficits. motor and sensory intact. Objective Labs 09/25/24 05:53 09/25/24 05:53 Labs: Laboratory Results - last 24 hr 09/24/24 09/24/24 09/25/24 09:00 09:44 05:53 WBC 4.4 3.6 RBC 3.76 L 3.56 L Hgb 9.5 L 9.2 L Hct 31.2 L 28.3 L MCV 83 80 MCH 25.3 25.8 MCHC 30.4 L 32.5 RDW Std Deviation 44.4 42.6 Plt Count 256 263 Neut % (Auto) 61 60 Lymph % (Auto) 27 24 [place] % (Auto) 9 11 Eos % (Auto) 2 4 Baso % (Auto) 1 1 Neut # (Auto) 2.7 2.1 Lymph # (Auto) 1.2 0.8 L [place] # (Auto) 0.4 0.4 Eos # (Auto) 0.1 0.2 Baso # (Auto) 0.0 0.0 Immature Gran # (Auto) 0.01 H 0.01 H Absolute Nucleated RBC 0.00 0.00 Immature Gran % 0 0 Nucleated RBC % 0 0 Sodium 144 144 Potassium 4.4 4.3 Chloride 111 H 110 H Carbon Dioxide 24.9 25.6 Anion Gap 8 8 BUN 17 13 Creatinine 1.3 1.2 Estim Creat Clear Calc 33.0 L 35.7 L eGFR 42 L 46 L BUN/Creatinine Ratio 13 11 L Glucose 131 H 99 Calculated Osmolality 290 286 Calcium 9.2 9.1 Corrected Calcium 9.2 9.2 Magnesium 1.9 Iron 36 L TIBC 360 Iron Saturation 10 L Unsat Iron Binding 324 H Ferritin 4 L Total Bilirubin 0.5 AST 25 ALT 31 Alkaline Phosphatase 67 Troponin I < 0.020 B-Natriuretic Peptide 238 H Total Protein 6.7 Albumin 4.5 Globulin 2.2 L Albumin/Globulin Ratio 2.0 TSH Ur Collection Type Voided Urine Color Colorless A Urine Clarity Clear Urine pH 6.5 Ur Specific [place] 1.013 Urine Protein Negative Urine Glucose (UA) Negative Urine Ketones Negative Urine Blood Negative Urine Nitrite Negative Urine Bilirubin Negative Urine Urobilinogen (Auto) Negative Ur Leukocyte Esterase Negative Urine RBC 1 Urine WBC < 1 Ur Squamous Epith Cells 0 Urine Bacteria None Ur Culture Indicated? Not Indicated 09/25/24 05:53 WBC RBC Hgb Hct MCV MCH MCHC RDW Std Deviation Plt Count Neut % (Auto) Lymph % (Auto) [place] % (Auto) Eos % (Auto) Baso % (Auto) Neut # (Auto) Lymph # (Auto) [place] # (Auto) Eos # (Auto) Baso # (Auto) Immature Gran # (Auto) Absolute Nucleated RBC Immature Gran % Nucleated RBC % Sodium Potassium Chloride Carbon Dioxide Anion Gap BUN Creatinine Estim Creat Clear Calc eGFR BUN/Creatinine Ratio Glucose Calculated Osmolality Calcium Corrected Calcium Magnesium Iron TIBC Iron Saturation Unsat Iron Binding Ferritin Cancelled Total Bilirubin 0.5 AST 19 ALT 24 Alkaline Phosphatase 59 Troponin I B-Natriuretic Peptide Total Protein 5.9 Albumin 3.9 D Globulin 2.0 L Albumin/Globulin Ratio 2.0 TSH 1.40 Ur Collection Type Urine Color Urine Clarity Urine pH Ur Specific [place] Urine Protein Urine Glucose (UA) Urine Ketones Urine Blood Urine Nitrite Urine Bilirubin Urine Urobilinogen (Auto) Ur Leukocyte Esterase Urine RBC Urine WBC Ur Squamous Epith Cells Urine Bacteria Ur Culture Indicated? Quality Measures Quality Measures VTE prophylaxis Advance care planning discussed with:: patient Assessment & Plan Assessment Current Active Medications: Generic Name Dose Route Start Last Admin Trade Name Freq PRN Reason Stop Dose Admin Acetaminophen 650 mg 09/24/24 15:05 Acetaminophen 325 Mg Tablet PO 10/24/24 15:04 Q6H PRN pain and Fever >100.4 Apixaban 5 mg 09/24/24 21:00 09/25/24 09:08 Apixaban 2.5 Mg Tablet PO 10/24/24 20:59 5 mg BID SERAFIN Administration Aspirin 81 mg 09/25/24 09:00 09/25/24 09:08 Aspirin Ec 81 Mg Tabec PO 10/25/24 08:59 81 mg QDAY SERAFIN Administration Atorvastatin Calcium 40 mg 09/24/24 21:00 09/24/24 20:52 Atorvastatin Calcium 20 Mg Tablet PO 10/24/24 20:59 Not Given HS SERAFIN Ondansetron HCl 4 mg 09/24/24 15:05 Ondansetron Inj 2 Mg/Ml Inj 2 Ml IV 10/24/24 15:04 Q6H PRN NAUSEA OR VOMITING Protocol Pantoprazole Sodium 40 mg 09/25/24 09:00 09/25/24 09:08 Pantoprazole 40 Mg Tablet PO 10/25/24 08:59 40 mg QDAY SERAFIN Administration Plan 78-year-old female with past medical history of hypertension, hyperlipidemia, and CAD status post CABG was admitted to hospital 09/24/2024 for stroke rule out in the setting of dizziness and unsteady gait. #Stroke R/O #Dizziness #Unsteady gait ?DDx TIA versus stroke ?Patient had new onset A-fib which could have contributed for possible stroke ?NIHSS score 0 ?CTA head and neck negative ?CT head negative ?Carotid ultrasound no significant stenosis Plan: ?Patient was out of window for IV thrombolytics. ?Aspirin and statin ordered ? MRI pending ?Echo with bubble studies pending ?Neurochecks every 4 hours ?Allow permissive hypertension ?Aspiration precautions -Consult in-hospital neurology, appreciate recommendations -Referred to speech and physical therapy, pending #Paroxysmal Atrial fibrillation, new onset Patient denies having any feelings of skipped heartbeat or tachycardia. EKG showed new onset A-fib with rate in the 70s. [id number] 5 points indicating 7.2% stroke risk per year HAS-BLED score of 1 point indicating low risk of major bleeding Plan: Patient appears to be rate controlled and sinus at this time Continue Eliquis 5mg twice daily Cardiology consulted, appreciate recommendations #Iron deficiency anemia Patient's hemoglobin this morning was 9.2 and on admission it was 9.5. Ordered iron panel and ferritin levels today which showed low iron at 36 and low ferritin at 4. Plan: Will start patient on ferrous sulfate 325 mg every other day Will continue to monitor and transfuse hemoglobin less than 7 #Hx of hypertension Patient's blood pressure was mildly elevated during admission and 164/91, but then was in the 130s over 70s. Will allow for permissive hypertension for now #Hx of hyperlipidemia Patient takes ezetimibe Will start patient on atorvastatin 40 mg at bedtime, side effects discussed with patient Disposition: Patient admitted to telemetry for stroke r/o, pending MRI, US carotid, and Neuro and cardio recs. Diet: Cardiac GI prophylaxis: protonix DVT prophylaxis: heparin subcu Code:DNR Case disclosed with Attending Dr. Lor Dukes PGY1 Attending Provider Attestation/Addendum I reviewed labs, imaging, EKG, home medications and prior available records. Face to face evaluation was performed by me. I have personally examined the patient and discussed assessment and plan with the IM team. I reviewed the resident note and agree with the plan with exceptions as below. Vertigo Ataxia CVA symptoms New onset atrial fibrillation Essential hypertension Hyperlipidemia Her symptoms are most likely due to A-fib versus TIA CT scan of the head is negative for acute changes Started aspirin and atorvastatin Follow-up brain MRI: Negative for CVA Follow-up echocardiogram with bubble study Follow-up carotid ultrasound: No major occlusion Consulted cardiology: Recommended to start anticoagulation with Eliquis. Outpatient follow-up with cardiology Consulted neurology PT/OT evaluation: Okay to discharge home
--- NOTE | 2024-09-25 10:01 | PC.SS ---
Patient Kathia Kaur is a 78 Year old female admitted for Stroke R/O, Dizziness. SS met with patient at [facility] to discuss discharge plan. Patient reports she lives at home alone. Patient is not from [facility], she was visiting a friend prior to admission. Patient is from [facility]. Patient's son, Miguel Smith is her surrogate decision maker, Patient is independent with all ADL's and does not utilize any source of DME to assist with ambulation. [facility] Patient follows up with PCP in [place]. At time of discharge patient's friend will provide transportation. Next of kin, Son, Miguel Smith Discharge plan:Home
[2024-09-25] MEDS: FERROUS SULF 325 MG TABLET PO (10:46)
--- NOTE | 2024-09-25 11:01 | PCS.ST ---
Pt passed nurse swallow screen and is tolerating diet this AM. Speech/Cognitive skills are baseline. No formal ST services are warranted at this time.
--- NOTE | 2024-09-25 11:20 | ESPR_ITS ---
Documentation for date of: 09/25/24 Subjective Subjective Interval history: Patient was seen and examined by the bedside. No acute overnight events. Patient denies dizziness, reports feeling unsteady during walking. Denies weakness, numbness. Patient is from [place], visiting friend in [place], was recommended to follow-up with neurologist at her hometown in 2 weeks. Exam Vital Signs Temp Pulse Resp BP Pulse Ox O2 Del Method 97.7 F 86 12 116/70 98 Room Air 09/25/24 08:00 09/25/24 08:00 09/25/24 08:00 09/25/24 08:00 09/25/24 08:00 09/25/24 08:00 Narrative Exam Gen: Well-developed and well-nourished. HEENT: NCAT, PERRLA, EOMI, MMM, anicteric conjunctivae. CVS: normal S1 and S2. RRR. No M/R/G. Resp: CTA B/L. No rhonchi, rales, crackles or wheezing. Abd: soft, non-tender, non-distended. BS+ in all 4 quadrants. MSK: Good ROM in BUE & BLE. No edema or rash. Neuro: CN II-XII grossly intact. Strength 5/5 in BUE & BLE. [id number] and [id number] is performed adequately. Alert and oriented x3. Walking unremarkable. Psych: appropriate mood and affect. Objective Labs 09/25/24 05:53 09/25/24 05:53 Labs: Laboratory Results - last 24 hr 09/25/24 09/25/24 05:53 05:53 WBC 3.6 RBC 3.56 L Hgb 9.2 L Hct 28.3 L MCV 80 MCH 25.8 MCHC 32.5 RDW Std Deviation 42.6 Plt Count 263 Neut % (Auto) 60 Lymph % (Auto) 24 [place] % (Auto) 11 Eos % (Auto) 4 Baso % (Auto) 1 Neut # (Auto) 2.1 Lymph # (Auto) 0.8 L [place] # (Auto) 0.4 Eos # (Auto) 0.2 Baso # (Auto) 0.0 Immature Gran # (Auto) 0.01 H Absolute Nucleated RBC 0.00 Immature Gran % 0 Nucleated RBC % 0 Sodium 144 Potassium 4.3 Chloride 110 H Carbon Dioxide 25.6 Anion Gap 8 BUN 13 Creatinine 1.2 Estim Creat Clear Calc 35.7 L eGFR 46 L BUN/Creatinine Ratio 11 L Glucose 99 Calculated Osmolality 286 Calcium 9.1 Corrected Calcium 9.2 Magnesium 1.9 Iron 36 L TIBC 360 Iron Saturation 10 L Unsat Iron Binding 324 H Ferritin 4 L Cancelled Total Bilirubin 0.5 AST 19 ALT 24 Alkaline Phosphatase 59 Total Protein 5.9 Albumin 3.9 D Globulin 2.0 L Albumin/Globulin Ratio 2.0 TSH 1.40 Quality Measures Quality Measures VTE prophylaxis Advance care planning discussed with:: other Assessment & Plan Assessment Current Active Medications: Generic Name Dose Route Start Last Admin Trade Name Freq PRN Reason Stop Dose Admin Acetaminophen 650 mg 09/24/24 15:05 Acetaminophen 325 Mg Tablet PO 10/24/24 15:04 Q6H PRN pain and Fever >100.4 Apixaban 5 mg 09/24/24 21:00 09/25/24 09:08 Apixaban 2.5 Mg Tablet PO 10/24/24 20:59 5 mg BID SERAFIN Administration Aspirin 81 mg 09/25/24 09:00 09/25/24 09:08 Aspirin Ec 81 Mg Tabec PO 10/25/24 08:59 81 mg QDAY SERAFIN Administration Atorvastatin Calcium 40 mg 09/24/24 21:00 09/24/24 20:52 Atorvastatin Calcium 20 Mg Tablet PO 10/24/24 20:59 Not Given HS SERAFIN Ferrous Sulfate 325 mg 09/25/24 10:30 09/25/24 10:46 Ferrous Sulf 325 Mg Tablet PO 10/25/24 10:29 325 mg QOD SERAFIN Administration Ondansetron HCl 4 mg 09/24/24 15:05 Ondansetron Inj 2 Mg/Ml Inj 2 Ml IV 10/24/24 15:04 Q6H PRN NAUSEA OR VOMITING Protocol Pantoprazole Sodium 40 mg 09/25/24 09:00 09/25/24 09:08 Pantoprazole 40 Mg Tablet PO 10/25/24 08:59 40 mg QDAY SERAFIN Administration Plan The patient is a 78-year-old female with past medical history of hypertension, hyperlipidemia, and CAD status post CABG was admitted to the hospital on 09/24/2024 after coming to the ED where she complains of dizziness with unsteady gait since morning when she woke up. She was admitted for stroke rule out. #Stroke R/O #Dizziness #Unsteady gait Patient had episode of dizziness which resolved, but still feels unsteady when she walks. Plan: ?Patient was out of window for IV thrombolytics. -Eliquis 5 mg BID as patient was found to have Afib - Atorvastatin 80 mg qday ? MRI negative for acute strokes, positive for chronic microvascular changes ?Echo with bubble studies negative for PFO ?Carotid ultrasound negative for significant stenosis ?Neurochecks every 4 hours -Blood pressure control -Aspiration precautions -Follow-up with Dr. Romero or neurologist in the hometown in 2 weeks #Atrial fibrillation, new onset #Hx of hypertension #Hx of hyperlipidemia - management per primary team Plan of care discussed with attending Dr. Romero. Raina Noriega MD, PGY 1. Attending Provider Attestation/Addendum Patient was seen and examined at the bedside and I agree with the residents findings, assessment and plan of care. Patient is advised to continue with the Eliquis for preventing embolic TIAs. Reassurance given to the patient regarding the negative MRI brain for acute stroke. She will follow-up with a local neurologist.
--- NOTE | 2024-09-25 11:39 | PC.SS ---
SS follow up note; Patient is pending an MRI and echo as well as PT evaluation. Patient will discharge back home when medically cleared.
[2024-09-25 12:00] VITALS: BP 134/88; PULSE 82; PULSE 83; RESP 24; TEMP 36.8; O2SAT 98
--- NOTE | 2024-09-25 15:07 | ECHO_ITS ---
Transthoracic Echo Report Ht (in): 63 Wt (lb): 155 Exam Location: Portable Status: Inpatient Network Architect: VALERIE Hernández^^^^ Indications: Procedure Performed: BP: / HR: 90 Rhythm: Atrial fibrillation Technical Quality: Fair MEASUREMENTS (Male / Female) Normal Values 2D ECHO LV Diastolic Diameter PLAX 4.2 cm 4.2 - 5.9 / 3.9 - 5.3 cm LV Systolic Diameter PLAX 2.8 cm IVS Diastolic Thickness 0.9 cm 0.6 - 1.0 / 0.6 - 0.9 cm LVPW Diastolic Thickness 1.1 cm 0.6 - 1.0 / 0.6 - 0.9 cm LV Relative Wall Thickness 0.5 LVOT Diameter 1.5 cm Aortic Root Diameter 3.1 cm LA Systolic Diameter LX 3.6 cm 3.0 - 4.0 / 2.7 - 3.8 cm LA Volume Index 47.0 cm?/m? 16 - 28 cm?/m? DOPPLER AV Peak Velocity 138.0 cm/s AV Peak Gradient 7.6 mmHg AV Mean Gradient 4.0 mmHg AV Velocity Time Integral 23.0 cm AI Peak Velocity 273.0 cm/s AI Peak Gradient 29.8 mmHg AI Pressure Half Time 349.0 ms LVOT Peak Velocity 90.9 cm/s LVOT Peak Gradient 3.3 mmHg LVOT Velocity Time Integral 24.1 cm LVOT Cardiac Index 2145.4 cm?/min?m? AV Area Cont Eq vti 1.9 cm? AV Area Cont Eq pk 1.2 cm? MV Peak Velocity 96.9 cm/s MV Peak Gradient 3.8 mmHg MV Mean Velocity 56.8 cm/s MV Mean Gradient 2.0 mmHg MV Area PHT 4.8 cm? MR Peak Velocity 374.5 cm/s MR Peak Gradient 56.1 mmHg Mitral E Point Velocity 98.0 cm/s Mitral A Point Velocity 43.2 cm/s Mitral E to A Ratio 2.3 LV E' Lateral Velocity 13.0 cm/s Mitral E to LV E' Lateral Ratio 7.5 LV E' Septal Velocity 8.1 cm/s Mitral E to LV E' Septal Ratio 12.2 TR Peak Velocity 258.8 cm/s TR Peak Gradient 26.8 mmHg PV Peak Velocity 94.7 cm/s PV Peak Gradient 3.6 mmHg RVOT Peak Velocity 57.6 cm/s FINDINGS Left Ventricle Normal left ventricular size, wall thickness, systolic function with no obvious regional wall motion abnormalities. There is grade III diastolic dysfunction of the left ventricle (restrictive filling pattern). The left ventricular ejection fraction is normal, estimated at 55-60%. Right Ventricle The right ventricle is normal in size and systolic function. The estimated right ventricular systolic pressure, 28 mmHg. Left Atrium Mildly increased left atrial volume 47 mL/m?. Right Atrium The right atrium is normal by two-dimensional imaging, color flow and Doppler imaging with no structural abnormalities, no thrombus formation present. Atrial Septum The interatrial septum is normal to color flow Doppler and agitated saline imaging. Aorta The aorta is normal by two-dimensional, color flow and Doppler interrogation. Mitral Valve Mild thickening of the mitral valve leaflets. Mild mitral regurgitation. Mild mitral annular calcification. Aortic Valve Aortic valve sclerosis. Trace to mild aortic valve regurgitation. Tricuspid Valve There is mild tricuspid valve regurgitation. Pulmonic Valve The pulmonic valve is not well visualized. There is no significant pulmonic valve regurgitation. Vessels The pulmonary artery appears normal. The inferior vena cava pulmonary and hepatic veins appear normal. Pericardium The pericardium is normal by two-dimensional imaging. There is no significant pericardial effusion. CONCLUSIONS Indication: Stroke w/ Bubble Dilated left atrium. Normal-sized left ventricle with normal left wall motion ejection fraction of 65 to 70%. Right atrium right ventricle normal right ventricle function normal. IAS is normal to color flow Doppler and agitated saline imaging. Negative bubble study no evidence of PFO Aortic valve sclerosis with evidence of trace to mild aortic regurgitation. Mitral annulus calcification with mitral valve thickening mild mitral regurgitation. Mild tricuspid regurgitation normal PA pressure. No intracardiac thrombi detected. Supriya Vang (Electronically Signed) Final Date: 25 Sep 2024 16:44
[2024-09-25 16:00] VITALS: BP 121/70; PULSE 81; RESP 13; TEMP 36.7; O2SAT 98
--- NOTE | 2024-09-25 17:23 | PC.NURSE ---
Discharge orders in awaiting Dr Higgins to speak with pt
--- NOTE | 2024-09-25 18:22 | ESDS_ITS ---
Planned Discharge Date 09/25/24 DS: Providers Provider Date of admission: 09/24/24 15:05 Primary care physician: Physician No Primary/Family Admitting Provider: Caleb Horowitz MD Attending Provider on Admission: Caleb Horowitz MD Consults: 09/24/24 15:08 Consult to Neurology / Tele-Neurology Routine Comment: Consulting Provider: Thomas Romero 09/24/24 15:10 Referral Physical Therapy Routine Comment: Physician Instructions: Referral Speech Therapy Routine Comment: 09/24/24 15:28 Consult to Cardiology Routine Comment: Consulting Provider: Asa Corral Attending Provider on DC: Caleb Horowitz MD Discharging Provider: Caleb Horowitz MD DS: Diagnosis Problem List Completed Was Problem List Reviewed/Reconciled?: Yes Hospital Course Hospital Course Hospital course: 78-year-old female with past medical history of hypertension, hyperlipidemia, and CAD status post CABG was admitted to hospital 09/24/2024 for stroke rule out in the setting of dizziness and unsteady gait. In the EDcame in with complains of dizziness with unsteady gait since this morning when she woke up. Initially came in hypertensive and afebrile. Initial labs were relevant for low hemoglobin (9.5) and mildly elevated BNP at 238, otherwise unremarkable. Initial imaging included EKG which did show a new onset A-fib rate controlled, chest x-ray was showed no pneumonia or pulmonary edema, head CT and head CTA which did not have any significant findings. Patient on the time of our assessment initially did not have any neurological deficits and NIHSS was 0. Neurology stated to start patient on aspirin and atorvastatin. MRI did not show any acute infarct just prominent chronic microvascular white matter changes and carotid Doppler study did not show any significant stenosis. Patient was started on Eliquis 5 mg twice daily after cardiology stated was okay to start the patient on this anticoagulation. Patient was found to have low iron levels therefore was started on for sulfate every other day. At the time of discharge patient was stable enough to be discharged back home. Discharge plan: Please follow-up with your primary care physician in 1 week upon discharge Please follow-up with a neurologist within 1 to 2 weeks upon discharge, if still in [place] please follow-up with Dr. Romero. You have been started on aspirin 81 mg daily, atorvastatin 40 mg at bedtime, and ferrous sulfate 325 mg every other day. Stop taking your ezetimibe. Please continue taking all other home medications as prescribed. Please come back to the ED if symptoms persist or worsen. Problem List: #TIA #Dizziness #Unsteady gait #Paroxysmal Atrial fibrillation, new onset #Iron deficiency anemia #Hx of hypertension #Hx of hyperlipidemia Status at Discharge Overall status at discharge: patient is progressing back to baseline Time Spent with Patient Time attestation: Total time spent providing and/or coordinating discharge services:>35 min Time spent: Greater than 30 minutes Exam Vital Signs Temp Pulse Resp BP Pulse Ox O2 Del Method 98.0 F 81 13 121/70 98 Room Air 09/25/24 16:09/25/24 16:09/25/24 16:09/25/24 16:09/25/24 16:09/25/24 16:00 Narrative Exam General: A/O x3, no acute distress, well-nourished, well-developed Eyes: PERRL, EOMI. Anicteric, vision grossly intact. Ears: No ear pain, no ear discharge, Hearing grossly intact. Nose: No nasal discharge. Mouth/Throat: Moist mucous membranes, no redness, no lesions. Neck: Neck supple, non-tender, no cervical lymphadenopathy. Lungs: Clear LALO to auscultation and percussion, No accessory muscle use. Cardio: Normal S1/S2, irregular rhythm, no murmurs, no JVD Abdomen: Soft, non-tender, no palpable masses, peristalsis present, no guarding or rebound. Extremities: Symmetrical, no significant deformities, no peripheral edema , non-tender, peripheral pulses presents. Skin: No rashes, no lesions, warm to touch. Neuro: No focal neurological deficits. motor and sensory intact. Discharge Plan Plan Patient Disposition: HOME (Self Care) Patient condition on transfer: Stable Care Plan Goals: Please follow-up with your primary care physician in 1 week upon discharge Please follow-up with a neurologist within 1 to 2 weeks upon discharge, if still in [place] please follow-up with Dr. Romero. Follow up with Manager Department in 1-2 weeks upon discharge for new onset A-fib. You have been started on Eliquis 5mg BID for A-Fib, atorvastatin 40 mg at bedtime and ferrous sulfate 325 mg every other day. Stop taking your ezetimibe. Please continue taking all other home medications as prescribed. Please come back to the ED if symptoms persist or worsen. Prescriptions/Referrals Prescriptions/Med Rec: New atorvastatin 40 mg tablet 40 mg PO QPM Qty: 30 0RF Eliquis 5 mg tablet 5 mg PO BID 30 Days Qty: 60 0RF ferrous sulfate 325 mg (65 mg iron) tablet 325 mg PO .QOD 30 Days Qty: 15 0RF Continued amlodipine 5 mg tablet 5 mg PO QDAY Patient Comments: TAKE ONE TABLET BY MOUTH ONE TIME DAILY lisinopril 10 mg tablet 10 mg PO QDAY Patient Comments: TAKE ONE TABLET BY MOUTH ONE TIME DAILY Discontinued ezetimibe 10 mg tablet 10 mg PO QDAY Patient Comments: TAKE ONE TABLET BY MOUTH EVERY DAY DIRECTED Referrals: No Primary/Family,Physician [Primary Care Provider] - Thomas Romero MD [Physician] - Patient/Caregiver Discharge Instructions Other Discharge Activity Instructions:: Please follow-up with your primary care physician in 1 week upon discharge Please follow-up with a neurologist within 1 to 2 weeks upon discharge, if still in [place] please follow-up with Dr. Romero. Follow up with Manager Department in 1-2 weeks upon discharge for new onset A-fib. You have been started on Eliquis 5mg BID for A-Fib, atorvastatin 40 mg at bedtime and ferrous sulfate 325 mg every other day. Stop taking your ezetimibe. Please continue taking all other home medications as prescribed. Please come back to the ED if symptoms persist or worsen. Education Materials: Discharge Instructions for ..., ED TIA: Transient Ischemic Attack Print Language: Amharic Stand Alone Forms: Brianne Award Info., Patient Portal Info Letter Discharge Order Discharge Orders: Discharge (Routine); Ordered 09/25/24 Ordered By: Mick Dukes Quality Discharge Quality Measures VTE prophylaxis Attestestation Attestation I reviewed labs, imaging, EKG, home medications and prior available records. Face to face evaluation was performed by me. I have personally examined the patient and discussed assessment and plan with the IM team. I reviewed the resident note and agree with the plan with exceptions as below. Vertigo Ataxia CVA, ruled out New onset atrial fibrillation Essential hypertension Hyperlipidemia Her symptoms are most likely due to A-fib CT scan of the head is negative for acute changes Started aspirin and atorvastatin Follow-up brain MRI: Negative for CVA Follow-up echocardiogram with bubble study Follow-up carotid ultrasound: No major occlusion Consulted cardiology: Recommended to start anticoagulation with Eliquis. Outpatient follow-up with cardiology Consulted neurology PT/OT evaluation: Okay to discharge home Time spent is 40 minutes. More than 50% of the time was spent on patient education and coordination of care.
--- NOTE | 2024-09-25 18:31 | ESPR_ITS ---
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 Burger PGY 2 Documentation for date of: 09/25/24 Subjective Subjective Interval history: Patient was seen and examined at the bedside. She reports no complains, her HR in 80s and remains irregular. Echo showed EF 65-70%, no PFO. Brain MRI is negative for stroke. Patient can be discharged from cardiology standpoint on aspirin 81 mg and Eliquis 5 mg BID. Exam Vital Signs Temp Pulse Resp BP Pulse Ox O2 Del Method 98.0 F 81 13 121/70 98 Room Air 09/25/24 16:00 09/25/24 16:00 09/25/24 16:00 09/25/24 16:00 09/25/24 16:00 09/25/24 16:00 Narrative Exam Gen: Well-developed and well-nourished female. HEENT: NCAT, PERRLA, EOMI, MMM, anicteric conjunctivae. CVS: normal S1 and S2. Irregularly irregular. No M/R/G. Resp: CTA B/L. No rhonchi, rales, crackles or wheezing. Abd: soft, non-tender, non-distended. BS+ in all 4 quadrants. MSK: Good ROM in BUE & BLE. Trace edema BLE. Midline chest scar from CABG, well-healed. Neuro: CN II-XII grossly intact. Strength 5/5 in BUE & BLE. Alert and oriented x3. Psych: appropriate mood and affect. Objective Labs 09/25/24 05:53 09/25/24 05:53 Labs: Laboratory Results - last 24 hr 09/25/24 09/25/24 05:53 05:53 WBC 3.6 RBC 3.56 L Hgb 9.2 L Hct 28.3 L MCV 80 MCH 25.8 MCHC 32.5 RDW Std Deviation 42.6 Plt Count 263 Neut % (Auto) 60 Lymph % (Auto) 24 [place] % (Auto) 11 Eos % (Auto) 4 Baso % (Auto) 1 Neut # (Auto) 2.1 Lymph # (Auto) 0.8 L [place] # (Auto) 0.4 Eos # (Auto) 0.2 Baso # (Auto) 0.0 Immature Gran # (Auto) 0.01 H Absolute Nucleated RBC 0.00 Immature Gran % 0 Nucleated RBC % 0 Sodium 144 Potassium 4.3 Chloride 110 H Carbon Dioxide 25.6 Anion Gap 8 BUN 13 Creatinine 1.2 Estim Creat Clear Calc 35.7 L eGFR 46 L BUN/Creatinine Ratio 11 L Glucose 99 Calculated Osmolality 286 Calcium 9.1 Corrected Calcium 9.2 Magnesium 1.9 Iron 36 L TIBC 360 Iron Saturation 10 L Unsat Iron Binding 324 H Ferritin 4 L Cancelled Total Bilirubin 0.5 AST 19 ALT 24 Alkaline Phosphatase 59 Total Protein 5.9 Albumin 3.9 D Globulin 2.0 L Albumin/Globulin Ratio 2.0 TSH 1.40 Quality Measures Quality Measures VTE prophylaxis Advance care planning discussed with:: patient Assessment & Plan Assessment Current Active Medications: Generic Name Dose Route Start Last Admin Trade Name Freq PRN Reason Stop Dose Admin Acetaminophen 650 mg 09/24/24 15:05 Acetaminophen 325 Mg Tablet PO 10/24/24 15:04 Q6H PRN pain and Fever >100.4 Apixaban 5 mg 09/24/24 21:00 09/25/24 09:08 Apixaban 2.5 Mg Tablet PO 10/24/24 20:59 5 mg BID SERAFIN Administration Aspirin 81 mg 09/25/24 09:00 09/25/24 09:08 Aspirin Ec 81 Mg Tabec PO 10/25/24 08:59 81 mg QDAY SERAFIN Administration Atorvastatin Calcium 40 mg 09/24/24 21:00 09/24/24 20:52 Atorvastatin Calcium 20 Mg Tablet PO 10/24/24 20:59 Not Given HS SERAFIN Ferrous Sulfate 325 mg 09/25/24 10:30 09/25/24 10:46 Ferrous Sulf 325 Mg Tablet PO 10/25/24 10:29 325 mg QOD SERAFIN Administration Ondansetron HCl 4 mg 09/24/24 15:05 Ondansetron Inj 2 Mg/Ml Inj 2 Ml IV 10/24/24 15:04 Q6H PRN NAUSEA OR VOMITING Protocol Pantoprazole Sodium 40 mg 09/25/24 09:00 09/25/24 09:08 Pantoprazole 40 Mg Tablet PO 10/25/24 08:59 40 mg QDAY SERAFIN Administration Plan Patient is a 78 years old female with past medical history of hypertension, hyperlipidemia, and CAD status post CABG in 2019 presented to the ED due to unsteady gait since this morning when she woke up. Stroke alert was called and teleneuro was consulted, she was admitted for further evaluation and MRI. CT head and CTA were negative. EKG showed Afib, cardiology was consulted due to new onset Afib. #New onset atrial fibrillation, rate controlled. Incidental finding during stroke workup, heart rate at 89. Never been diagnosed with atrial fibrillation before. History of CAD and CABG in 2020. [id number] score 5 points. Echo showed EF 65-70%, no PFO. Plan: - continue on Eliquis 5 mg twice daily and aspirin 81 mg daily. - No rate control medications as of now. - can be discharged from cardiology standpoint. #CAD s/p CABG in 2019. Underwent CABG in 2019 [facility] in [place] after abnormal stress test and 3 bypasses were placed. She does not take aspirin or statin at home. She is not followed by nuclear power plant engineer. Troponin negative. EKG did not show ST segment changes. Echo showed EF 65-70%, no PFO. #Hypertension. - Resume home amlodipine and lisinopril. #Hyperlipidemia. - Resume home Zetia. #Stroke ruled out. - Management as per primary team and neurology recommendations. Plan of care discussed with attending Dr. Corral. Tao De La Garza MD, PGY 2. Disclaimer: This note was dictated by speech recognition. Minor errors in nurse advocate may be present due to voice recognition software.
[2024-09-25 19:12] VITALS: BP 129/79; PULSE 89; RESP 16; TEMP 36.6; O2SAT 98
== END 2024-09-25 19:17 | disposition home or self-care (01) | DRG 69 ==
LOC: SERX 15:19 → SERHOLD 15:34 → S2NX 16:19
PROVIDERS: Nurse Practitioner Family; Admitting Provider Student in an Organized Health Care Education/Training Program; Emergency Provider Emergency Medicine; Visit Provider Student in an Organized Health Care Education/Training Program
DX: G45.9 Transient cerebral ischemic attack, unspecified (principal); R42 Dizziness and giddiness; D50.9 Iron deficiency anemia, unspecified; I10 Essential (primary) hypertension; I48.0 Paroxysmal atrial fibrillation; R26.81 Unsteadiness on feet; E78.5 Hyperlipidemia, unspecified; I25.10 Atherosclerotic heart disease of native coronary artery without angina pectoris; Z87.891 Personal history of nicotine dependence; Z95.1 Presence of aortocoronary bypass graft; Z66 Do not resuscitate; Z88.5 Allergy status to narcotic agent; Z79.899 Other long term (current) drug therapy
CPT/HCPCS: 36415; 70450; 70496; 70498; 70544; 71046; 80053; 81001; 82728; 83540; 83550; 83735; 83880; 84443; 84484; 85025; 92610; 93005; 93306; 93880; 99285; A4649; Q9967; A9270